=== PATIENT | male | born 1940 | race Asian ===

== ENCOUNTER 2024-07-31 07:21 | Emergency (ER) | payer OTHER ==
[2024-07-31 09:25] LABS: BASO % 0.3 % (0-2.0); EOS % 0.5 % (0-4.5); HEMATOCRIT 37.6 % (35.4-49); HEMOGLOBIN 12.8 GM/dL (11.7-16.9); LYMPH % 26.7 % (8-40); MCH 33.6 pg (25.7-33.7); MCHC 34.1 g/dl (32.0-35.9); MEAN CELL VOLUME 98.4 fl (80-96); MEAN PLT VOLUME 9.9 fl (7.5-11.1); MONO % 7.5 % (3.8-10.2); PLATELET COUNT 125 10^3/uL (134-434); RBC 3.82 M/mm3 (4.00-5.60)
[2024-07-31 09:26] VITALS: TEMP 97.3; BMI 22.6
[2024-07-31 09:26] LABS: INR 1.03 (0.83-1.09); PROTHROMBIN TIME (PATIENT) 11.6 SEC (9.7-13.0)
[2024-07-31 09:29] LABS: ACTIVATED PTT 28.2 SECONDS (25.2-36.5)
[2024-07-31] MEDS: SODIUM CHLORIDE 0.9% 1000 ML INFUS.BAG IV ONE (09:41)
[2024-07-31] MEDS: dilTIAZem HCL 50 MG/10 ML - 10 ML VIAL IVPUSH ONE ×2 (09:41→10:09)
[2024-07-31 09:45] LABS: POTASSIUM 3.1 mmol/L (3.5-5.1)
[2024-07-31 09:46] LABS: CALCIUM 8.2 mg/dL (8.5-10.1)
[2024-07-31 09:47] LABS: ALBUMIN 3.2 g/dl (3.4-5.0)
[2024-07-31 09:50] LABS: CREATININE 0.8 mg/dL (0.55-1.3)
[2024-07-31 09:52] LABS: TOT PROT 7.2 g/dl (6.4-8.2)
[2024-07-31 09:53] LABS: BILIRUBIN,TOTAL 0.8 mg/dL (0.2-1)
[2024-07-31 09:54] LABS: EPI CELLS 1 /uL (0-25.1); HYALINE CASTS 0 /uL (0-3.1); URINE APPEARANCE CLEAR; URINE BACTERIA 4 /uL (0-1359); URINE BILIRUBIN NEGATIVE (NEGATIVE); URINE COLOR YELLOW; URINE GLUCOSE (UA) NEGATIVE (NEGATIVE); URINE KETONE TRACE (NEGATIVE); URINE LEUK ESTERASE NEGATIVE (NEGATIVE); URINE NITRITE NEGATIVE (NEGATIVE); URINE PROTEIN NEGATIVE (NEGATIVE); URINE RBC 18 /uL (0-23.9); URINE UROBILINOGEN 0.2 mg/dL (0.2-1.0); URINE WBC 3 /uL (0-25.8)
[2024-07-31] MEDS ORDERED: dilTIAZem HCL 50 MG/10 ML - 10 ML VIAL ONE (10:00)
[2024-07-31 10:52] VITALS: RESP 18
[2024-07-31 11:18] VITALS: BP 132/70; PULSE 113
== END 2024-07-31 10:10 | disposition short-term general hospital (02) ==
LOC: JER 07:21
PROC: 3E033GC Introduction of Other Therapeutic Substance into Peripheral Vein, Percutaneous Approach (ICD-10-PCS; principal; 2024-07-31)
PROC: 3E033GC Introduction of Other Therapeutic Substance into Peripheral Vein, Percutaneous Approach (ICD-10-PCS; 2024-07-31)
DX: I63.312 Cerebral infarction due to thrombosis of left middle cerebral artery (principal); I48.0 Paroxysmal atrial fibrillation; R29.898 Other symptoms and signs involving the musculoskeletal system; I10 Essential (primary) hypertension
CPT/HCPCS: 36415; 70450-TC; 70496-TC; 70498-TC; 80053; 80061; 81003; 82550; 82962; 83036; 84484; 85025; 85610; 85730; 86850; 86900; 86901; 93005; 93010; 99291; 99292